=== PATIENT | female | born 1995 | race African-American/Black ===

== ENCOUNTER 2016-11-17 01:15 | Emergency (ER) | payer SELFPAY ==
[2016-11-17 01:23] VITALS: BP 108/64
--- NOTE | 2016-11-17 02:33 | ER Document Report ---
ED General - General Chief Complaint: Foreign Body in Vagina Stated Complaint: VAGINAL PAIN Mode of Arrival: Ambulatory Information source: Patient Notes: 21 yr old female presents with concerns for retained condom 30 miuntes after having intercourse. denies any other concerns TRAVEL OUTSIDE OF THE [place] IN LAST 30 DAYS: No - HPI Onset: Just prior to arrival Onset/Duration: Sudden Quality of pain: No pain Severity: Mild Pain Level: Denies Associated symptoms: None Exacerbated by: Denies Relieved by: Denies Similar symptoms previously: No Recently seen / treated by doctor: No - Related Data Allergies/Adverse Reactions: amoxicillin trihydrate [From Augmentin] Allergy (Verified 01/10/16 15:00) Potassium Clavulanate * [From Augmentin] Allergy (Verified 01/10/16 15:00) Past Medical History - Social History Smoking Status: Never Smoker Cigarette use (# per day): No Chew tobacco use (# tins/day): No Smoking Education Provided: No Frequency of alcohol use: None Drug Abuse: None Family History: Reviewed & Not Pertinent Renal/ Medical History: Denies: Hx Peritoneal Dialysis - Immunizations Hx Diphtheria, Pertussis, Tetanus Vaccination: Yes Review of Systems - Review of Systems Notes: REVIEW OF SYSTEMS: CONSTITUTIONAL : Denies fever, chills, or sweats. Denies recent illness. EENT: Denies eye, ear, throat, or mouth pain or symptoms. Denies nasal or sinus congestion or discharge. Denies throat, tongue, or mouth swelling or difficulty swallowing. CARDIOVASCULAR: Denies chest pain. Denies palpitations or racing or irregular heart beat. Denies ankle edema. RESPIRATORY: Denies cough, cold, or chest congestion. Denies shortness of breath, difficulty breathing, or wheezing. GASTROINTESTINAL: Denies abdominal pain or distention. Denies nausea, vomiting , or diarrhea. Denies blood in vomitus, stools, or per rectum. Denies black, tarry stools. Denies constipation. GENITOURINARY: Denies difficulty urinating, painful urination, burning, frequency, blood in urine, or discharge. FEMALE GENITOURINARY: admits to foreign body MUSCULOSKELETAL: Denies back or neck pain or stiffness. Denies joint pain or swelling. SKIN: Denies rash, lesions or sores. HEMATOLOGIC : Denies easy bruising or bleeding. LYMPHATIC: Denies swollen, enlarged glands. NEUROLOGICAL: Denies confusion or altered mental status. Denies passing out or loss of consciousness. Denies dizziness or lightheadedness. Denies headache. Denies weakness or paralysis or loss of use of either side. Denies problems with gait or speech. Denies sensory loss, numbness, or tingling. Denies seizures. PSYCHIATRIC: Denies anxiety or stress. Denies depression, suicidal ideation, or homicidal ideation. ALL OTHER SYSTEMS REVIEWED AND NEGATIVE. Dictation was performed using [employer] voice recognition software PHYSICAL EXAMINATION: GENERAL: Well-appearing, well-nourished and in no acute distress. HEAD: Atraumatic, normocephalic. EYES: Pupils equal round and reactive to light, extraocular movements intact, conjunctiva are normal. ENT: Nares patent, oropharynx clear without exudates. Moist mucous membranes. NECK: Normal range of motion, supple without lymphadenopathy LUNGS: Breath sounds clear to auscultation bilaterally and equal. No wheezes rales or rhonchi. HEART: Regular rate and rhythm without murmurs ABDOMEN: Soft, nontender, nondistended abdomen. No guarding, no rebound. No masses appreciated. Female : pelvic exam performed with tech in room, ocndom removed Musculoskeletal: Normal range of motion, no pitting or edema. No cyanosis. NEUROLOGICAL: Cranial nerves grossly intact. Normal speech, normal gait. Normal sensory, motor exams PSYCH: Normal mood, normal affect. SKIN: Warm, Dry, normal turgor, no rashes or lesions noted. Physical Exam - Vital signs Vitals: Temp Pulse Resp BP Pulse Ox 97.9 F 87 18 108/64 98 11/17/16 01:21 11/17/16 01:21 11/17/16 01:21 11/17/16 01:21 11/17/16 01:21 Course - Re-evaluation Re-evalutation: 11/17/16 02:37 condom removed, no complication After performing a Medical Screening Examination, I estimate there is LOW risk for ACUTE APPENDICITIS, BOWEL OBSTRUCTION, ACUTE CHOLECYSTITIS, PERFORATED DIVERTICULITIS, INCARCERATED HERNIA, PANCREATITIS, PELVIC INFLAMMATORY DISEASE, PERFORATED ULCER, ECTOPIC , or TUBO-OVARIAN ABSCESS, thus I consider the discharge disposition reasonable. Also, there is no evidence or peritonitis , sepsis, or toxicity. The patient and I have discussed the diagnosis and risks , and we agree with discharging home with close follow-up with the understanding that symptoms and presentations can change. We also discussed returning to the Emergency Department immediately if new or worsening symptoms occur. We have discussed the symptoms which are most concerning (e.g., bloody stool, fever, changing or worsening pain, vomiting) that necessitate immediate return. - Vital Signs Vital signs: Temp Pulse Resp BP Pulse Ox 97.9 F 87 18 108/64 98 11/17/16 01:21 11/17/16 01:21 11/17/16 01:21 11/17/16 01:21 11/17/16 01:21 Procedures - Additional Procedures foreign body removal Time performed: 02:37 - condom removed with tweezer Discharge - Discharge Clinical Impression: Vaginal foreign body Qualifiers: Encounter type: initial encounter Qualified Code(s): T19.2XXA - Foreign body in vulva and vagina, initial encounter Condition: Stable Disposition: HOME, SELF-CARE Additional Instructions: Follow up with your physician tomorrow for further care or return to the ED IMMEDIATELY if symptoms worsen or new concerns occur
== END 2016-11-17 02:41 | disposition home or self-care (01) ==
LOC: ER 01:15
DX: T19.2XXA Foreign body in vulva and vagina, initial encounter (principal); X58.XXXA Exposure to other specified factors, initial encounter; Z88.0 Allergy status to penicillin
CPT/HCPCS: 99283

== ENCOUNTER 2017-01-25 09:16 | Emergency (ER) | payer OTHER ==
--- NOTE | 2017-01-25 11:38 | ER Document Report ---
HPI - HPI Patient complains to provider of: bites at work Onset: Other - 2 days ago Onset/Duration: Persistent, Worse Pain Level: 3 Context: 21-year-old female that works at [employer] felt something bite her around her waist after sitting on a chair at work. She recently had bedbug bites on her ankles when she was at someone's house that had known bedbugs. Associated Symptoms: None Exacerbated by: Denies Relieved by: Denies Similar symptoms previously: No Recently seen / treated by doctor: No - ROS ROS below otherwise negative: Yes Systems Reviewed and Negative: Yes All other systems reviewed and negative - REPRODUCTIVE Reproductive: DENIES: : - DERM Skin Color: Normal Past Medical History - Social History Smoking Status: Never Smoker Chew tobacco use (# tins/day): No Frequency of alcohol use: None Drug Abuse: None Lives with: Family Family History: Reviewed & Not Pertinent Patient has suicidal ideation: No Patient has homicidal ideation: No - Medical History Medical History: Negative Renal/ Medical History: Denies: Hx Peritoneal Dialysis Surgical Hx: Negative - Immunizations Hx Diphtheria, Pertussis, Tetanus Vaccination: Yes Vertical Provider Document - CONSTITUTIONAL Agree With Documented VS: Yes Exam Limitations: No Limitations - INFECTION CONTROL TRAVEL OUTSIDE OF THE [place] IN LAST 30 DAYS: No - HEENT HEENT: Atraumatic, Normocephalic - NECK Neck: Supple - RESPIRATORY Respiratory: Breath Sounds Normal, No Respiratory Distress O2 Sat by Pulse Oximetry: 99 - CARDIOVASCULAR Cardiovascular: Regular Rate, Regular Rhythm - MUSCULOSKELETAL/EXTREMETIES Musculoskeletal/Extremeties: MAEW, FROM - NEURO Level of Consciousness: Awake, Alert - DERM Integumentary: Rash - red wheals lower abdomen and 2 on back waist Course - Vital Signs Vital signs: Temp Pulse Resp BP Pulse Ox 97.7 F 87 16 127/75 H 99 01/25/17 09:29 01/25/17 09:29 01/25/17 09:29 01/25/17 09:29 01/25/17 09:29 Discharge - Discharge Clinical Impression: bed bug bites Condition: Good Disposition: HOME, SELF-CARE Instructions: Family Physicians / Practices, Swollen Insect Bite or Sting ([facility]) , Use of Diphenhydramine, Acid-Suppressing Medication ([facility]) Additional Instructions: [id number] Benadryl Voqj-gtt-[id number] Pepcid Talk to work about exterminating Please complete the patient satisfaction survey if you get one, and return it.. If you do not receive a survey, then you can go to the [facility] website, [email or web address] and place your comments about your very good care. Thank you very much. It was a pleasure being your medical provider today.
[2017-01-25 12:39] VITALS: BP 126/74
== END 2017-01-25 12:10 | disposition home or self-care (01) ==
LOC: ER 09:16
DX: S31.159A Open bite of abdominal wall, unspecified quadrant without penetration into peritoneal cavity, initial encounter (principal); W57.XXXA Bitten or stung by nonvenomous insect and other nonvenomous arthropods, initial encounter
CPT/HCPCS: 99281

== ENCOUNTER 2018-07-15 08:45 | Emergency (ER) | payer OTHER ==
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
[2018-07-15] MEDS ORDERED: ONDANSETRON 4 MG TAB.RAPDIS PO ONE (10:34)
[2018-07-15] MEDS ORDERED: OXYCODONE-ACETAMINOPHEN 5-325 MG TABLET PO ONE (10:34)
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
[2018-07-15 13:02] VITALS: BP 110/65
== END 2018-07-15 13:10 | disposition home or self-care (01) ==
LOC: ER 08:45
DX: M54.89 Other dorsalgia (principal); M54.5 Low back pain; R10.10 Upper abdominal pain, unspecified; V49.40XA Driver injured in collision with unspecified motor vehicles in traffic accident, initial encounter
CPT/HCPCS: 99284; 72050; 72070; 74177; S0119

== ENCOUNTER 2018-11-15 01:07 | Emergency (ER) | payer BC, OTHER ==
[2018-11-15] MEDS ORDERED: DIAZEPAM INJ 10 MG/2 ML DISP.SYRIN IV ONE (01:15)
--- NOTE | 2018-11-15 01:24 | ER Document Report ---
ED General - General Stated Complaint: SEIZURE Time Seen by Provider: 11/15/18 01:15 Notes: Patient is a 23-year-old female without chronic medical problems who presents after having an acute panic attack at home, continued to have a panic attack here in the emergency department. Patient states that she was concerned that she was having seizures as she was apparently shaking on the ground but did not lose consciousness during this episode, no postictal phase. Apparently a similar episode yesterday, was informed that she may have seizures although again never lost consciousness during these episodes and never had a postictal phase. The patient admits to feeling quite anxious here in the emergency department. Nursing staff in triage note that the patient was hyperventilating, having an acute panic attack. Family at the bedside states the patient has a hi story of anxiety as a child and were all likewise worried that she was having an associated anxiety reaction today. Patient reports improvement after receiving diazepam here in the emergency department. No obvious trigger for her symptoms today. Denies any focal weakness, numbness, headache, neck pain, fever or constitutional symptoms. TRAVEL OUTSIDE OF THE [place] IN LAST 30 DAYS: No - Related Data Allergies/Adverse Reactions: amoxicillin trihydrate [From Augmentin] Allergy (Verified 11/15/18 01:41) Potassium Clavulanate * [From Augmentin] Allergy (Verified 11/15/18 01:41) Past Medical History - General Information source: Patient - Social History Smoking Status: Never Smoker Frequency of alcohol use: None Drug Abuse: None Lives with: Family Family History: Reviewed & Not Pertinent Renal/ Medical History: Denies: Hx Peritoneal Dialysis - Immunizations Hx Diphtheria, Pertussis, Tetanus Vaccination: Yes Review of Systems - Review of Systems Notes: Constitutional: Negative for fever. HENT: Negative for sore throat. Eyes: Negative for visual changes. Cardiovascular: Negative for chest pain. Respiratory: Positive for hyperventilation Gastrointestinal: Negative for abdominal pain, vomiting or diarrhea. Genitourinary: Negative for dysuria. Musculoskeletal: Negative for back pain. Skin: Negative for rash. Neurological: Negative for headaches, weakness or numbness. 10 point ROS negative except as marked above and in HPI. Physical Exam - Vital signs Vitals: Resp BP Pulse Ox 24 H 143/98 H 95 11/15/18 01:11 11/15/18 01:11 11/15/18 01:11 Interpretation: Hypertensive Notes: PHYSICAL EXAMINATION: GENERAL: Appears highly anxious HEAD: Atraumatic, normocephalic. EYES: Pupils equal round and reactive to light, extraocular movements intact, sclera anicteric, conjunctiva are normal. ENT: nares patent, oropharynx clear without exudates. Moist mucous membranes. NECK: Normal range of motion, supple without lymphadenopathy LUNGS: Hyperventilating HEART: Regular tachycardia without murmurs ABDOMEN: Soft, nontender, normoactive bowel sounds. No guarding, no rebound. No masses appreciated. EXTREMITIES: Normal range of motion, no pitting or edema. No cyanosis. NEUROLOGICAL: No focal neurological deficits. Moves all extremities spontaneously and on command. PSYCH: Anxious, tremulous SKIN: Warm, Dry, normal turgor, no rashes or lesions noted. 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 Clinical history is inconsistent with an epileptic seizure and I do not believe any im aging or labs as indicated. Neurologic exam unremarkable without any focal neurologic deficits. No trauma sustained during today's episode. The patient does have a history of similar episodes in the past as well as a psychiatric history. At this time will discharge with return precautions and follow-up recommendations. Verbal discharge instructions given a the bedside and opportunity for questions given. Medication warnings reviewed. Patient is in agreement with this plan and has verbalized understanding of return precautions and the need for primary care follow-up in the next 24-72 hours. - Vital Signs Vital signs: Temp Pulse Resp BP Pulse Ox 18 143/98 H 95 11/15/18 01:12 11/15/18 01:11 11/15/18 01:12 Discharge - Discharge Clinical Impression: Anxiety attack, Pseudoseizure Condition: Good Disposition: HOME, SELF-CARE Additional Instructions: Your episode of shaking today was likely due to something called PNES, also known as pseudogenic non-epileptiform seizures. These are often also often referred to as pseudoseizures. These are not voluntary. However, they are not coming from an abnormal focus in your brain like somebody who has true epilepsy. These episodes can often be triggered by stress, anxiety, or not taking your normal medications. Please follow-up with your primary care doctor at your earliest ability. Return for any additional concerns you may have including if you develop a fever, nausea, vomiting, pass out, have focal weakness or numbness, or any other symptoms that are concerning to you. Referrals: GUERRERO ABDALLA MD [Primary Care Provider] - Follow up tomorrow
[2018-11-15 02:42] VITALS: BP 117/81
== END 2018-11-15 02:44 | disposition home or self-care (01) ==
LOC: ER 01:07
DX: R56.9 Unspecified convulsions (principal); F41.9 Anxiety disorder, unspecified
CPT/HCPCS: 99283; 96374; J3360